=== PATIENT | male | born 1980 | race Caucasian/White ===

== ENCOUNTER 2023-03-05 07:34 | Day surgery (SDC) | payer BC ==
[2023-02-26 14:37] LABS: BASOPHILS % (AUTO) 0.5 % (0-1); EOSINOPHILS # (AUTO) 0.1 X10'3 (0-0.9); LYMPHOCYTES # (AUTO) 1.6 X10'3 (1.1-4.8); LYMPHOCYTES % (AUTO) 25.1 % (21-51); MEAN CORPUSCULAR HEMOGLOBIN 30.2 PG (27.0-31.0); MEAN CORPUSCULAR HGB CONC 34.2 g/dL (33.0-36.5); MEAN CORPUSCULAR VOLUME 88.3 FL (78-98); MEAN PLATELET VOLUME 7.8 FL (7.4-10.4); MONOCYTES # (AUTO) 0.5 X10'3 (0-0.9); MONOCYTES % (AUTO) 7.4 % (2-12); NEUTROPHILS # (AUTO) 4.2 X10'3 (1.8-7.7); PRE OP HEMATOCRIT 45.6 % (42.0-52.0); PRE OP HEMOGLOBIN 15.6 g/dL (14.0-17.9); PRE OP PLATELET COUNT 389 X10'3 (140-440); PRE OP WHITE BLOOD COUNT 6.3 10'3 (4.8-10.8); RED BLOOD COUNT 5.16 X10'6 (4.70-6.10); RED CELL DISTRIBUTION WIDTH 13.4 % (11.5-14.5)
[2023-02-26 14:50] LABS: ALBUMIN 4.1 G/DL (3.4-5.0); ALKALINE PHOSPHATASE 112 IU/L (46-116); BLOOD UREA NITROGEN 12 MG/DL (7-18); BUN/CREATININE RATIO 11.9 (10.0-20.0); CALCIUM 9.1 MG/DL (8.5-10.1); CHLORIDE 104 MMOL/L (99-107); CREATININE 1.01 MG/DL (0.60-1.10); PRE OP ALT 57 U/L (30-65); PRE OP ANION GAP 7 (8-16); PRE OP AST 27 U/L (10-37); PRE OP BILIRUB, TOTAL 0.8 MG/DL (0.0-1.0); PRE OP GLUCOSE 112 MG/DL (70-104); PRE OP SODIUM 138 MMOL/L (135-145); TOTAL CARBON DIOXIDE 27.4 MMOL/L (24-32); TOTAL PROTEIN 8.2 G/DL (6.4-8.2); eGFR 82 ML/MIN
[2023-03-05] VITALS (11 sets, daily range): BP systolic 116–151; BP diastolic 77–93; PULSE 70–89; RESP 13–20; TEMP 97.4; O2SAT 94–100
[~2023-03-05] VITALS: Ht 182.9 cm; Wt 93.9 kg
[~2023-03-05 07:34] MED LIST: NO HOME MEDS; cefazolin 2gm/D5W 100mL 100 ML IV ONE; famotidine 20mg tablet PO ONE; ringers solution, lacted 1,000 ML IV SCH
[2023-03-05] MEDS ORDERED: morphine 2 MG/ML inj. syringe IV PRN (08:05)
[2023-03-05] MEDS ORDERED: ondansetron/PF 4mg/2ml inj IV PRN (08:05)
[2023-03-05] MEDS ORDERED: hydrALAZINE 20mg/ml inj. IV PRN (08:05)
[2023-03-05] MEDS ORDERED: labetalol 20mg/4ml (5mg/ml) syringe IV PRN (08:05)
[2023-03-05] MEDS ORDERED: ringers solution, lacted 1,000 ML IV SCH (08:05)
[2023-03-05] MEDS ORDERED: morphine 4 MG/ML inj SYRINge IV PRN (08:05)
[2023-03-05] MEDS ORDERED: fentaNYL/PF 50MCG/1 ML 2ML syringe IV PRN ×2 (08:05)
[2023-03-05] MEDS ORDERED: BUPIVAcaine/PF 2.5mg/ml (0.25%) 10ml vial ONE ×2 (09:26→09:48)
[2023-03-05] MEDS ORDERED: LIDOcaine 1% 30ml preserv. free vial ONE (09:26)
[2023-03-05] MEDS ORDERED: sevoflurane 250ml liquid IH ONE (09:35)
[2023-03-05] MEDS ORDERED: neostigmine methylsulfate 1 MG/ML 10ml vial ONE (09:35)
[2023-03-05] MEDS ORDERED: rocuronium 10mg/ml inj IV ONE ×2 (09:35→09:37)
[2023-03-05] MEDS ORDERED: dexamethasone sod phosphate 10mg/ml inj ONE (09:35)
[2023-03-05] MEDS ORDERED: propofol 10mg/ml 20ml vial IV ONE (09:35)
[2023-03-05] MEDS ORDERED: fentaNYL/PF 50MCG/1 ML 2ML syringe ONE (09:36)
[2023-03-05] MEDS ORDERED: midazolam 1 mg/ML 2ml injection ONE (09:37)
[2023-03-05] MEDS ORDERED: ondansetron/PF 4mg/2ml inj ONE (09:37)
[2023-03-05] MEDS ORDERED: propofol inj 20 ML IV ONE (09:37)
[2023-03-05] MEDS ORDERED: glycopyrrolate 0.2mg/ml inj ONE (09:37)
[2023-03-05] MEDS ORDERED: LIDOcaine 2% (20mg/ml) 5ml vial ONE (09:37)
[2023-03-05] MEDS ORDERED: BUPIVACAINE liposomal/PF 13.3 MG/ML vial IM ONE (09:48)
[2023-03-05] MEDS ORDERED: oxyCODONE/APAP 5-325mg tablet PO PRN (11:05)
== END 2023-03-05 12:39 | disposition home or self-care (01) ==
LOC: PAS 07:34
PROVIDERS: ATTEND Surgery
DX: K43.6 Other and unspecified ventral hernia with obstruction, without gangrene (principal); K42.9 Umbilical hernia without obstruction or gangrene; Z79.899 Other long term (current) drug therapy; Z98.890 Other specified postprocedural states; Z83.3 Family history of diabetes mellitus; Z82.49 Family history of ischemic heart disease and other diseases of the circulatory system
CPT/HCPCS: 36415; 49594; 64488; 80053; 82948; 85025; 93005; C1781; C9290; J0690; J1100; J2250; J2270; J2405; J2704; J2710; J3010; J3490; J7030; J7120; Z7506; Z7508; Z7512; A4215; A4618

== ENCOUNTER 2023-03-05 17:21 | Emergency (ER) | payer BC ==
[~2023-03-05] VITALS: Ht 182.9 cm; Wt 90.9 kg
[~2023-03-05 17:21] MED LIST changes: -cefazolin 2gm/D5W 100mL 100 ML IV ONE; -famotidine 20mg tablet PO ONE; -ringers solution, lacted 1,000 ML IV SCH
[2023-03-05 17:24] VITALS: BP 137/87; PULSE 103; RESP 16; TEMP 98.1; O2SAT 98
[2023-03-05] MEDS ORDERED: LidoCAINE 2% Topical Jelly 11mL syringe TOP ONE (17:35)
[2023-03-05 18:02] LABS: BILIRUBIN,URINE NEGATIVE (Neg); CLARITY,URINE CLEAR (Clear); COLOR,URINE YELLOW (Yellow); GLUCOSE, URINE NEGATIVE (Neg); KETONES,URINE NEGATIVE (Neg); LEUKOCYTE ESTERASE ,URINE NEGATIVE (Neg); NITRITES, URINE NEGATIVE (Neg); OCCULT BLOOD,URINE NEGATIVE (Neg); PROTEIN,URINE NEGATIVE (Neg); UROBILINOGEN,URINE 0.2 E.U/dL (0.2-1.0)
[2023-03-05 18:35] LABS: UA COLLECTION TYPE CLN CATCH MIDSTREAM
== END 2023-03-06 04:41 | disposition left against medical advice (07) ==
LOC: ER 17:21
DX: G89.18 Other acute postprocedural pain (principal); Z53.21 Procedure and treatment not carried out due to patient leaving prior to being seen by health care provider
CPT/HCPCS: 81003; 99281